=== PATIENT | female | born 1965 | race African-American/Black ===

== ENCOUNTER → 2016-08-15 | Outpatient (CLI) | payer MEDICARE, MEDICAID ==
[~2016-08-15] MED LIST: ALBU18; ARIP1TAB5; CYCL-181 PO; DIPH25CA66; DOCU-99; GABA800T87; IOHEXOL 300 MG/ML 100ML BOTTLE IJ ONE; KLOR CON PO; LIDOCAINE 2%HCL (LOCAL ANESTH.) INJ 20ML MDV ONE; LISI40TA; LORA-655 PO; METO-281; MORP60TA OR; PERCOT; VENL150C
== END | disposition home or self-care (01) ==
LOC: CT 11:23
DX: M48.04 Spinal stenosis, thoracic region (principal); M47.26 Other spondylosis with radiculopathy, lumbar region; M51.36 Other intervertebral disc degeneration, lumbar region; M12.88 Other specific arthropathies, not elsewhere classified, other specified site; G96.0 Cerebrospinal fluid leak; M96.1 Postlaminectomy syndrome, not elsewhere classified; Z98.890 Other specified postprocedural states
CPT/HCPCS: 72129; 72132; Q9967